=== PATIENT | female | born 1990 | race Caucasian/White ===

== ENCOUNTER 2017-02-04 18:53 | Emergency (ER) | payer OTHER ==
[2017-02-04] MEDS ORDERED: ACETAMINOPHEN TAB 500 MG TAB PO STA (21:59)
[2017-02-04] MEDS ORDERED: IBUPROFEN 600 MG TAB PO STA (21:59)
--- NOTE | 2017-02-04 22:06 | ED ---
General Adult HPI - General Chief complaint: Abdominal Pain Stated complaint: Abd Pain Time Seen by Provider: 02/04/17 21:53 Source: patient, family, RN notes reviewed Mode of arrival: ambulatory Limitations: no limitations - History of Present Illness Initial comments: 26-year-old female presents to the emergency Department chief complaint of right -sided flank pain and dysuria. Patient states she has had this for the last day or so. Patient states she has had a fever however there has been no vomiting but some nausea. Patient states that she was concerned because of her continued flank pain and the burning with urination so she thought that she should be evaluated. She denies any cough cold like symptoms. She denies taking any Motrin or Tylenol today. She denies any vaginal discharge or pain with urination. There were concerned due to her continued discomfort so without that they should be evaluated. Patient denies any recent fever, chills, shortness of breath, chest pain, back pain, vomiting, numbness or tingling, constipation or diarrhea, headaches or visual changes, or any other current symptoms. - Related Data Previous Rx's Medication Instructions Recorded Ciprofloxacin HCl [Cipro] 500 mg PO Q12HR #14 tablet 02/04/17 Ondansetron Odt [Zofran ODT] 4 mg PO Q8HR PRN #20 tab 02/04/17 Phenazopyridine [Pyridium] 100 mg PO TID #6 tablet 02/04/17 Allergies Allergy/AdvReac Type Severity Reaction Status Date / Time No Known Allergies Allergy Verified 02/04/17 22:11 Review of Systems ROS Statement: Those systems with pertinent positive or pertinent negative responses have been documented in the HPI. ROS Other: All systems not noted in ROS Statement are negative. Past Medical History Past Medical History: No Reported History History of Any Multi-Drug Resistant Organisms: None Reported Past Surgical History: Section Past Psychological History: No Psychological Hx Reported Smoking Status: Current every day smoker Past Alcohol Use History: Occasional Past Drug Use History: Marijuana General Exam - General Exam Comments Initial Comments: General: The patient is awake and alert, in no distress, and does not appear acutely ill. Eye: Pupils are equal, round and reactive to light, extra-ocular movements are intact. Ears, nose, mouth and throat: There are moist mucous membranes and no oral lesions. Neck: The neck is supple, there is no tenderness. Cardiovascular: There is a regular rate and rhythm. No murmur, rub or gallop is appreciated. Respiratory: Lungs are clear to auscultation, respirations are non-labored, breath sounds are equal. No wheezes, stridor, rales, or rhonchi. Gastrointestinal: Soft, non-distended, non-tender abdomen without masses or organomegaly noted. There is no rebound or guarding present. right sided CVA tenderness. Bowel sounds are unremarkable. Back: There is no tenderness to palpation in the midline. There is no obvious deformity. No rashes noted. Musculoskeletal: Normal ROM, no tenderness, There is no pedal edema. There is no calf tenderness or swelling. Sensation intact. Pulses equal bilaterally 2+. Neurological: CN II-XII intact, There are no obvious motor or sensory deficits. Coordination appears grossly intact. Speech is normal. Skin: Skin is warm and dry and no rashes or lesions are noted. Psychiatric: Cooperative, appropriate mood & affect, normal judgment. Limitations: no limitations Course Vital Signs 02/04/17 02/04/17 19:29 22:09 Temperature 102 F H 101.0 F H Pulse Rate 89 98 Respiratory 18 16 Rate Blood Pressure 133/90 114/69 O2 Sat by Pulse 100 95 Oximetry Medical Decision Making - Medical Decision Making 26-year-old female presents emergency department chief complaint of right-sided flank pain. At this time patient does appear to have acute possible. At this time the patient is comfortable with discharge home. We did give HER-2 of Rocephin. Blood work was reviewed with the patient. We did discuss return parameters and follow-up and that this could require admission and what to watch for. Patient stated that she understood and all questions have been answered. This time she will be discharged home. - Lab Data Result diagrams: 02/04/17 22:20 02/04/17 22:20 Lab Results 02/04/17 02/04/17 02/04/17 Range/Units 22:06 22:06 22:20 WBC 12.6 H (3.8-10.6) k/uL RBC 4.41 (3.80-5.40) m/uL Hgb 12.9 (11.4-16.0) gm/dL Hct 37.9 (34.0-46.0) % MCV 85.9 (80.0-100.0) fL MCH 29.3 (25.0-35.0) pg MCHC 34.2 (31.0-37.0) g/dL RDW 14.0 (11.5-15.5) % Plt Count 241 (150-450) k/uL Neutrophils % 87 % Lymphocytes % 8 % Monocytes % 3 % Eosinophils % 1 % Basophils % 0 % Neutrophils # 11.0 H (1.3-7.7) k/uL Lymphocytes # 1.0 (1.0-4.8) k/uL Monocytes # 0.4 (0-1.0) k/uL Eosinophils # 0.1 (0-0.7) k/uL Basophils # 0.0 (0-0.2) k/uL Sodium (137-145) mmol/L Potassium (3.5-5.1) mmol/L Chloride (98-107) mmol/L Carbon Dioxide (22-30) mmol/L Anion Gap mmol/L BUN (7-17) mg/dL Creatinine (0.52-1.04) mg/dL Est GFR (MDRD) Af Amer (>60 ml/min/1.73 sqM) Est GFR (MDRD) Non-Af (>60 ml/min/1.73 sqM) Glucose (74-99) mg/dL Plasma Lactic Acid Guicho (0.7-2.0) mmol/L Calcium (8.4-10.2) mg/dL Total Bilirubin (0.2-1.3) mg/dL AST (14-36) U/L ALT (9-52) U/L Alkaline Phosphatase (38-126) U/L Total Protein (6.3-8.2) g/dL Albumin (3.5-5.0) g/dL Urine Color Yellow Urine Appearance Turbid H (Clear) Urine pH 7.0 (5.0-8.0) Ur Specific Hamilton 1.014 (1.001-1.035) Urine Protein 3+ H (Negative) Urine Glucose (UA) Negative (Negative) Urine Ketones 3+ H (Negative) Urine Blood Moderate H (Negative) Urine Nitrite Negative (Negative) Urine Bilirubin Negative (Negative) Urine Urobilinogen 2.0 (<2.0) mg/dL Ur Leukocyte Esterase Large H (Negative) Urine RBC 44 H (0-5) /hpf Urine WBC >182 H (0-5) /hpf Ur Squamous Epith Cells <1 (0-4) /hpf Urine HCG, Qual Not Detected (Not Detectd) 02/04/17 02/04/17 Range/Units 22:20 22:20 WBC (3.8-10.6) k/uL RBC (3.80-5.40) m/uL Hgb (11.4-16.0) gm/dL Hct (34.0-46.0) % MCV (80.0-100.0) fL MCH (25.0-35.0) pg MCHC (31.0-37.0) g/dL RDW (11.5-15.5) % Plt Count (150-450) k/uL Neutrophils % % Lymphocytes % % Monocytes % % Eosinophils % % Basophils % % Neutrophils # (1.3-7.7) k/uL Lymphocytes # (1.0-4.8) k/uL Monocytes # (0-1.0) k/uL Eosinophils # (0-0.7) k/uL Basophils # (0-0.2) k/uL Sodium 139 (137-145) mmol/L Potassium 3.4 L (3.5-5.1) mmol/L Chloride 103 (98-107) mmol/L Carbon Dioxide 26 (22-30) mmol/L Anion Gap 10 mmol/L BUN 7 (7-17) mg/dL Creatinine 0.64 (0.52-1.04) mg/dL Est GFR (MDRD) Af Amer >60 (>60 ml/min/1.73 sqM) Est GFR (MDRD) Non-Af >60 (>60 ml/min/1.73 sqM) Glucose 152 H (74-99) mg/dL Plasma Lactic Acid Guicho 0.8 (0.7-2.0) mmol/L Calcium 9.4 (8.4-10.2) mg/dL Total Bilirubin 0.4 (0.2-1.3) mg/dL AST 20 (14-36) U/L ALT 20 (9-52) U/L Alkaline Phosphatase 49 (38-126) U/L Total Protein 7.3 (6.3-8.2) g/dL Albumin 4.3 (3.5-5.0) g/dL Urine Color Urine Appearance (Clear) Urine pH (5.0-8.0) Ur Specific Hamilton (1.001-1.035) Urine Protein (Negative) Urine Glucose (UA) (Negative) Urine Ketones (Negative) Urine Blood (Negative) Urine Nitrite (Negative) Urine Bilirubin (Negative) Urine Urobilinogen (<2.0) mg/dL Ur Leukocyte Esterase (Negative) Urine RBC (0-5) /hpf Urine WBC (0-5) /hpf Ur Squamous Epith Cells (0-4) /hpf Urine HCG, Qual (Not Detectd) Disposition Clinical Impression: Acute pyelonephritis Disposition: HOME SELF-CARE Condition: Stable Instructions: Urinary Tract Infection in Women (ED), Kidney Infection (ED) Additional Instructions: Please use medication as discussed. Please follow up with family doctor if symptoms have not improved over the next two days. Please return to the emergency room if your symptoms increase or worsen or for any other concerns. Prescriptions: Ciprofloxacin HCl [Cipro] 500 mg PO Q12HR #14 tablet Ondansetron Odt [Zofran ODT] 4 mg PO Q8HR PRN #20 tab PRN Reason: Nausea Phenazopyridine [Pyridium] 100 mg PO TID #6 tablet Referrals: Jenny Liu MD [REFERRING] - 1-2 days Time of Disposition: 23:01
[2017-02-04 22:11] VITALS: BP 114/69; PULSE 98; RESP 16
[2017-02-04 22:29] LABS: Appearance,Urine Turbid (Clear); Bilirubin,Urine Negative (Negative); Glucose,Urine (UA) Negative (Negative); Ketones,Urine 3+ (Negative); Leukocyte Esterase,Urine Large (Negative); Nitrite,Urine Negative (Negative); Particle Count 2266; Protein,Urine 3+ (Negative); RBC,Urine 44 /hpf (0-5); Specific Gravity,Urine 1.014 (1.001-1.035); Squamous Epithelial Cell,Urine <1 /hpf (0-4); UA Billing (MACRO vs. MICRO) MICRO; WBC,Urine >182 /hpf (0-5)
[2017-02-04 22:32] LABS: Basophils % (A) 0 %; CH 29.9; CHCM 35.1; Eosinophils # (A) 0.1 k/uL (0-0.7); Eosinophils % (A) 1 %; HCT 37.9 % (34.0-46.0); HDW 2.84; HGB 12.9 gm/dL (11.4-16.0); Luc # (Auto) 0.09; Luc % (Auto) 1; Lymphocytes % (A) 8 %; MCH 29.3 pg (25.0-35.0); MCHC 34.2 g/dL (31.0-37.0); MCV 85.9 fL (80.0-100.0); Monocytes # (A) 0.4 k/uL (0-1.0); Monocytes % (A) 3 %; Neutrophils % (A) 87 %; RBC 4.41 m/uL (3.80-5.40); WBC 12.6 k/uL (3.8-10.6); WBC (Perox) 12.43
[2017-02-04] MEDS ORDERED: cefTRIAXone IN SWFI 2,000 MG/20 ML SYRINGE IVP STA (22:32)
[2017-02-04] MEDS ORDERED: SODIUM CHLORIDE 0.9% 1,000 ML IV STA (22:33)
[2017-02-04 22:42] LABS: ALT 20 U/L (9-52); AST 20 U/L (14-36); Alkaline Phosphatase 49 U/L (38-126); Anion Gap 10 mmol/L; Blood Urea Nitrogen 7 mg/dL (7-17); Calcium 9.4 mg/dL (8.4-10.2); Carbon Dioxide 26 mmol/L (22-30); Chloride 103 mmol/L (98-107); Glucose 152 mg/dL (74-99); Non-African American GFR(MDRD) >60 (>60 ml/min/1.73 sqM); Potassium 3.4 mmol/L (3.5-5.1); Sodium 139 mmol/L (137-145); Total Bilirubin 0.4 mg/dL (0.2-1.3); Total Protein 7.3 g/dL (6.3-8.2)
[2017-02-04 23:06] VITALS: TEMP 101.3
== END 2017-02-04 23:21 | disposition home or self-care (01) ==
LOC: EC 18:53
DX: N10 Acute pyelonephritis (principal); F17.200 Nicotine dependence, unspecified, uncomplicated; Z98.890 Other specified postprocedural states
CPT/HCPCS: 36415; 80053; 83605; 85025; 81001; 81025; 87040; 87086; 99283; 96374; J0696; 87077; 87186

== ENCOUNTER 2017-07-01 16:51 | Emergency (ER) | payer OTHER ==
[2017-07-01 16:56] VITALS: BP 144/75; PULSE 104; RESP 18; TEMP 97.7
[2017-07-01] MEDS ORDERED: SULFAMETH-TMP DS STARTER PACK 2 TAB BTL PO STA (17:10)
[2017-07-01] MEDS ORDERED: ERYTHROMYCIN 5 MG/GM OPHTH OINT 3.5 GM TUBE LEFT EYE STA (17:10)
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
== END 2017-07-01 17:49 | disposition home or self-care (01) ==
LOC: EC 16:51
DX: H01.004 Unspecified blepharitis left upper eyelid (principal); F17.200 Nicotine dependence, unspecified, uncomplicated; S01.112D Laceration without foreign body of left eyelid and periocular area, subsequent encounter
CPT/HCPCS: 67700; 87070; 87077; 87186; 87205; 99283

== ENCOUNTER 2017-12-17 17:09 | Emergency (ER) | payer OTHER ==
[2017-12-17 17:20] VITALS: RESP 18; TEMP 98.8
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
--- NOTE | 2017-12-17 18:05 | XR ---
PROCEDURE: XR forearm RT 2V DATE AND TIME: 12/17/2017 5:49 PM CLINICAL INDICATION: pain; r/o fb TECHNIQUE: Department protocol. COMPARISON: None FINDINGS: There is a 10 mm x 1 mm linear metallic radiopaque foreign body in the soft tissues of the proximal m ost medial forearm. No other radiopaque foreign bodies. No focal soft tissue finding; no soft tissue emphysema. No fracture or malalignment. IMPRESSION: Positive for radiopaque foreign body, having the appearance of a needle.
[2017-12-17 18:24] VITALS: BP 120/60; PULSE 80
== END 2017-12-17 18:27 | disposition home or self-care (01) ==
LOC: EC 17:09
DX: M79.5 Residual foreign body in soft tissue (principal); J40 Bronchitis, not specified as acute or chronic; F17.200 Nicotine dependence, unspecified, uncomplicated; Z86.14 Personal history of Methicillin resistant Staphylococcus aureus infection; Z79.891 Long term (current) use of opiate analgesic; Z79.899 Other long term (current) drug therapy
CPT/HCPCS: 81025; 99284

== ENCOUNTER 2019-01-04 21:31 | Emergency (ER) | payer OTHER ==
[2019-01-04 21:36] VITALS: BP 108/81; PULSE 108; RESP 20; TEMP 98.1
[2019-01-04] MEDS ORDERED: CEPHALEXIN 500 MG CAP PO STA (22:00)
--- NOTE | 2019-01-04 22:00 | ED ---
Skin/Abscess/FB HPI - General Chief complaint: Skin/Abscess/Foreign Body Stated complaint: L thigh abscess Time Seen by Provider: 01/04/19 21:45 Source: patient Mode of arrival: ambulatory Limitations: no limitations - History of Present Illness Initial comments: Patient is a 28-year-old female presenting to emergency Department with complaints of a sore on her left upper thigh x 2 weeks. Patient states a ladder fell onto her thigh cutting her preciously 2 weeks ago and she's had an abscess present until approximately 2 days ago when it ruptured. Patient states a lot of purulent fluid came out from the wound. Patient states the surrounding erythema has improved however she is concerned with such a large wound. Patient denies fever, chills, nausea, vomiting. Patient does admit to IV drug use. Patient has no other complaints at this time. Upon arrival to the ER, vital signs are stable. - Related Data Home Medications Medication Instructions Recorded Confirmed Buprenorphine HCl/Naloxone HCl 1 film SL DAILY 12/17/17 12/17/17 [Suboxone 8 mg-2 mg Sl Film] Chlorpheniramine Maleate 4 mg PO DAILY PRN 12/17/17 12/17/17 [Chlor-Trimeton] Ibuprofen [Advil] 400 mg PO Q6HR PRN 12/17/17 12/17/17 guaiFENesin SYRUP 100MG/5ML 400 mg PO Q6H PRN 12/17/17 12/17/17 [Robitussin] Previous Rx's Medication Instructions Recorded Albuterol Inhaler [Ventolin Hfa 1 - 2 puff INHALATION Q6HR #1 12/17/17 Inhaler] inhaler Cephalexin [Keflex] 500 mg PO Q6HR 10 Days #40 cap 01/04/19 Allergies Allergy/AdvReac Type Severity Reaction Status Date / Time No Known Allergies Allergy Verified 01/04/19 21:36 Review of Systems ROS Statement: Those systems with pertinent positive or pertinent negative responses have been documented in the HPI. ROS Other: All systems not noted in ROS Statement are negative. Past Medical History Past Medical History: No Reported History History of Any Multi-Drug Resistant Organisms: MRSA Date of last positivie culture/infection: 07/01/17 MDRO Source:: EYE Past Surgical History: Section Past Psychological History: No Psychological Hx Reported Smoking Status: Current every day smoker Past Alcohol Use History: Occasional Past Drug Use History: None Reported, Heroin, IV Drug Use, Marijuana General Exam - General Exam Comments Initial Comments: GENERAL: Well-appearing, well-nourished and in no acute distress. HEAD: Atraumatic, normocephalic. EYES: Pupils equal round and reactive to light, extraocular movements intact, sclera anicteric, conjunctiva are normal. ENT: Moist mucous membranes. LUNGS: Breath sounds clear to auscultation bilaterally and equal. No wheezes rales or rhonchi. HEART: Regular rate and rhythm without murmurs, rubs or gallops. ABDOMEN: Soft, nontender, normoactive bowel sounds. No guarding, no rebound. No masses appreciated. EXTREMITIES: Normal range of motion, no pitting or edema. No clubbing or cyanosis. PSYCH: Normal mood, normal affect. SKIN: Warm, Dry, normal turgor, no rashes. Patient has a 1 cm in diameter, 0.5cm de ep, open wound to her left anterior thigh. There is no surrounding erythema, no active drainage. There is minor pain with palpation of surrounding area. Limitations: no limitations Course Vital Signs 01/04/19 21:34 Temperature 98.1 F Pulse Rate 108 H Respiratory 20 Rate Blood Pressure 108/81 O2 Sat by Pulse 97 Oximetry Medical Decision Making - Medical Decision Making Patient is a 28-year-old female presenting with a open wound on her left anterior thigh is approximately one centimeters in diameter 0.5 cm in depth. Patient states the abscess opened and drained approximately 2 days ago. There is no active drainage or surrounding erythema. Patient is an IV drug user. Patient will be placed on Keflex. Patient will apply topical antibiotic as well as a bandage over the wound while working. Patient stable for discharge at this time. Return parameters were discussed with the patient, she verbalized understanding. Patient is in agreement with this plan of care. Case discussed with Dr. Padron. Disposition Clinical Impression: Abscess of left leg Disposition: HOME SELF-CARE Condition: Stable Instructions (If sedation given, give patient instructions): Abscess (ED) Additional Instructions: Please return to the Emergency Department if symptoms worsen or any other concerns. Prescriptions: Cephalexin [Keflex] 500 mg PO Q6HR 10 Days #40 cap Is patient prescribed a controlled substance at d/c from ED?: No Referrals: None,Stated [Primary Care Provider] - 1-2 days
== END 2019-01-04 22:32 | disposition home or self-care (01) ==
LOC: EC 21:31
DX: L02.416 Cutaneous abscess of left lower limb (principal); F17.200 Nicotine dependence, unspecified, uncomplicated; Z86.14 Personal history of Methicillin resistant Staphylococcus aureus infection
CPT/HCPCS: 87070; 87205; 99283